=== PATIENT | male | born 1965 | race African-American/Black ===

== ENCOUNTER 2021-11-08 16:50 | Inpatient (IN) | payer BC ==
[~2021-11-08] VITALS: Ht 182.9 cm; Wt 128.4 kg
[~2021-11-08 16:50] MED LIST: FLEXERIL PO; NORCO 5-325 TA1 EACH PO; UNKNOWN BP MED
[2021-11-08 17:06] VITALS: BP 164/77
[2021-11-08] MEDS ORDERED: METFORMIN HCL500 M3 PO (17:08)
[2021-11-08] MEDS ORDERED: NORVASC10 MG PO (17:08)
[2021-11-08] MEDS ORDERED: NEURONTIN100 MG PO (17:09)
[2021-11-08] MEDS ORDERED: TRULICITY3 MG/0.5 M SUBQ (17:09)
[2021-11-08] MEDS ORDERED: HYDROCODON-ACE1 EAC7 PO (17:09)
[2021-11-08 17:31] LABS: ABSOLUTE MONOCYTES 0.3 thou/uL (0.0-1.2); ABSOLUTE NEUTROPHILS 2.6 thou/uL (1.6-8.1); HEMATOCRIT 42.3 % (42.0-52.0); HEMOGLOBIN 14.4 gm/dL (14.0-18.0); LYMPHOCYTES 25.6 %; MCH 27.9 pg (26.0-34.0); MCHC 33.9 g/dL (28.0-37.0); MCV 82.3 fL (80.0-100.0); MONOCYTES 7.3 %; MPV 9.3 fl. (7.2-11.1); NUCLEATED RBCS 0 /100WBC; PLATELET COUNT* 134 thou/uL (150-400); POLYS 66.1 %; RBC 5.14 mil/uL (4.50-6.00); RDW-CV 14.4 % (10.5-14.5)
[2021-11-08 17:41] LABS: INFLUENZA A ANTIGEN Negative (Negative); INFLUENZA B ANTIGEN Negative (Negative)
[2021-11-08 17:44] LABS: CALCIUM 8.1 mg/dL (8.5-10.1); POTASSIUM 3.9 mmol/L (3.5-5.1)
[2021-11-08 17:53] LABS: ALBUMIN 3.2 g/dL (3.4-5.0); TOTAL BILIRUBIN 0.6 mg/dL (<0.1-1.0); TOTAL PROTEIN 7.8 g/dL (6.4-8.2)
[2021-11-08 19:41] VITALS: BP 132/78
[2021-11-08] MEDS ORDERED: COZAAR 25 MG TA25 M1 PO (20:03)
[2021-11-08] MEDS ORDERED: BYSTOLIC10 MG PO (20:03)
[2021-11-09] VITALS: BP 170/97
[2021-11-09 04:00] VITALS: BP 148/77
[2021-11-09 08:00] VITALS: BP 135/85
--- NOTE | 2021-11-09 08:17 | EKG ---
[place] [address] ELECTROCARDIOGRAM REPORT Name: ALEXI MCQUEEN Room: [place] [address] ADM IN [facility]#: [id number] Admission: 11/08/21 Attend Phys: Dileep Cormier Discharge: Date of : 63 Date of Service: 11/08/21 1725 Report #: [id number] THIS REPORT FOR: //name// [facility] ED Test Date: 2021-11-08 Test Time: 17:25:09 Pat Name: ALEXI MCQUEEN Department: Room: [facility] Gender: M Merchandise Presentation Associate: MONIKA : 1965 Requested By: Nabil Rocha Order Number: [id number] MD: Matthew Andersen Measurements Intervals [place] Rate: 94 P: 30 ME: 139 QRS: -32 QRSD: 91 T: 43 QT: 372 QTc: 466 Interpretive Statements Sinus tachycardia Atrial premature complexes Probable left atrial enlargement Left axis deviation No previous ECG available for comparison Electronically Signed On 11-09-2021 8:17:20 ELECTRONIC SCANNER OPERATOR by Matthew Andersen [email or web address] <ELECTRONICALLY SIGNED> By: Matthew Andersen MD, [facility] 11/09/21 0817 1725 1725 Matthew Andersen MD, [facility] /EPI
[2021-11-09 12:00] VITALS: BP 166/94
[2021-11-09 16:00] VITALS: BP 155/84
[2021-11-09 19:29] VITALS: BP 143/72
[2021-11-10] VITALS (9 sets, daily range): BP systolic 135–171; BP diastolic 67–88
[2021-11-10 09:08] LABS: ABSOLUTE LYMPHOCYTES 0.8 thou/uL (0.8-5.3); ABSOLUTE MONOCYTES 0.3 thou/uL (0.0-1.2); BASOPHILS 0.3 %; HEMATOCRIT 40.4 % (42.0-52.0); HEMOGLOBIN 13.4 gm/dL (14.0-18.0); LYMPHOCYTES 16.1 %; MCH 27.5 pg (26.0-34.0); MCHC 33.1 g/dL (28.0-37.0); MCV 83.2 fL (80.0-100.0); MPV 9.5 fl. (7.2-11.1); NUCLEATED RBCS 0 /100WBC; PLATELET COUNT* 179 thou/uL (150-400); POLYS 77.6 %; RBC 4.86 mil/uL (4.50-6.00); RDW-CV 14.1 % (10.5-14.5); WBC 5.2 thou/uL (4.0-11.0)
[2021-11-10 09:19] LABS: APTT 29.9 Seconds (25.0-31.3); INR 1.1; PROTIME 11.7 Seconds (9.20-11.50)
[2021-11-10 09:20] LABS: ALBUMIN 2.7 g/dL (3.4-5.0); CALCIUM 8.2 mg/dL (8.5-10.1); MAGNESIUM 1.9 mg/dL (1.8-2.4); POTASSIUM 3.9 mmol/L (3.5-5.1); TOTAL BILIRUBIN 0.5 mg/dL (<0.1-1.0)
--- NOTE | 2021-11-10 12:52 | 2DMMODE ---
[place] [address] 2 D/M-MODE ECHOCARDIOGRAM Name: ALEXI MCQUEEN Room: [address] IN [facility]#: [id number] Admission: 11/08/21 Attend Phys: Dileep Cormier Discharge: Date of : 63 Date of Service: 11/10/21 1251 Report #: [id number] THIS REPORT FOR: cc: Belén Astudillo MD, Karla L. MD Liston, Michael J. MD [facility] ~ APPROVED REPORT Study performed: 11/10/2021 11:36:04 EXAM: Comprehensive 2D, Doppler, and color-flow Echocardiogram Patient Location: In-Patient Room #: [facility] Status: routine BSA: 2.53 HR: 94 bpm Rhythm: NSR Other Information Study Quality: Good Indications Congestive Heart Failure 2D Dimensions IVSd: 14.53 (7-11mm) LVOT Diam: 22.97 (18-24mm) LVDd: 60.00 mm PWd: 11.62 (7-11mm) Ascending Ao: 40.37 (22-36mm) LVDs: 47.08 (25-40mm) Aortic Root: 31.88 mm Volumes Left Atrial Volume (Systole) LA ESV Index: 28.10 mL/m2 Aortic Valve AoV Peak Zach.: 1.49 m/s AO Peak Gr.: 8.82 mmHg LVOT Max P.06 mmHg AO Mean Gr.: 5.10 mmHg LVOT Mean P.22 mmHg LVOT Max V: 1.01 m/s AO V2 VTI: 24.16 cm LVOT Mean V: 0.70 m/s KM (VTI): 2.66 cm2 LVOT V1 VTI: 15.48 [place] [address] 2 D/M-MODE ECHOCARDIOGRAM Name: ALEXI MCQUEEN Room: [address] IN ..#: [id number] Admission: 11/08/21 Attend Phys: Dileep Cormier Discharge: Date of : 63 Date of Service: 11/10/21 1251 Report #: [id number] Mitral Valve E/A Ratio: 0.78 MV Decel. Time: 204.66 ms MV E Max Zach.: 0.81 m/s MV PHT: 59.35 ms MVA (PHT): 3.71 cm2 TDI E/Lateral E': 7.36 E/Medial E': 9.00 Medial E' Zach.: 0.09 m/s Lateral E' Zach.: 0.11 m/s Pulmonary Valve PV Peak Zach.: 1.07 m/s PV Peak Gr.: 4.60 mmHg Tricuspid Valve RAP Estimate: 5.00 mmHg TR Peak Gr.: 26.60 mmHg RVSP: 31.00 mmHg PA Pressure: 31.00 mmHg Left Ventricle The left ventricle is normal size. There is mild global hypokinesis without obvious focal wall motion abnormality. Mild concentric left ventricular hypertrophy. Left ventricular systolic function is mildly decreased. LVEF is 45-50%. Grade I - abnormal relaxation pattern. Right Ventricle The right ventricle is normal size. The right ventricular systolic function is normal. Atria Left atrium is mildly dilated. The right atrium size is normal. Aortic Valve The aortic valve is normal in structure. No aortic regurgitation is present. There is no aortic valvular stenosis. Mitral Valve The mitral valve is normal in structure. Mild mitral regurgitation. No evidence of mitral valve stenosis. Tricuspid Valve The tricuspid valve is normal in structure. Mild tricuspid regurgitation. The RVSP is 30-[place] [address] 2 D/M-MODE ECHOCARDIOGRAM Name: ALEXI MCQUEEN Room: [address] IN [facility]#: [id number] Admission: 11/08/21 Attend Phys: Dileep Cormier Discharge: Date of : 63 Date of Service: 11/10/21 1251 Report #: [id number] Pulmonic Valve The pulmonary valve is normal in structure. There is no pulmonic valvular regurgitation. Great Vessels The aortic root is normal in size. IVC is not well visualized. Pericardium There is no pericardial effusion. <Conclusion> The left ventricle is normal size. Mild concentric left ventricular hypertrophy. Left ventricular systolic function is mildly decreased. LVEF is 45-50%. Grade I - abnormal relaxation pattern. There is mild global hypokinesis without obvious focal wall motion abnormality. Left atrium is mildly dilated. Mild mitral regurgitation. Mild tricuspid regurgitation. The RVSP is 30-35 mmHg. <ELECTRONICALLY SIGNED> By: Rom Moe MD, FACC 11/10/21 1251 1251 125 Rom Moe MD, FACC /INF
[2021-11-11 04:00] VITALS: BP 132/64
[2021-11-11 08:00] VITALS: BP 142/97
[2021-11-11 13:04] VITALS: BP 147/85
[2021-11-11 16:30] VITALS: BP 145/91
[2021-11-12] VITALS: BP 122/63
[2021-11-12 03:43] LABS: HEMATOCRIT 40.9 % (42.0-52.0); HEMOGLOBIN 13.8 gm/dL (14.0-18.0); MCH 27.7 pg (26.0-34.0); MCHC 33.7 g/dL (28.0-37.0); MCV 82.3 fL (80.0-100.0); MPV 9.7 fl. (7.2-11.1); RBC 4.97 mil/uL (4.50-6.00); RDW-CV 14.1 % (10.5-14.5); WBC 8.5 thou/uL (4.0-11.0)
[2021-11-12 04:00] VITALS: BP 144/83
[2021-11-12 04:00] LABS: BE 1.5 mmol/L (-2 to +3); pH 7.421 (7.340-7.450)
[2021-11-12 04:02] LABS: PO2 59.1 mmHg (75.0-100.0)
[2021-11-12 04:06] LABS: CALCIUM 8.4 mg/dL (8.5-10.1); POTASSIUM 4.1 mmol/L (3.5-5.1)
[2021-11-12 08:00] VITALS: BP 124/66
[2021-11-12 12:00] VITALS: BP 142/85
[2021-11-12 16:00] VITALS: BP 143/87
[2021-11-13] VITALS (7 sets, daily range): BP systolic 111–180; BP diastolic 50–98
[2021-11-13 10:48] LABS: HEMATOCRIT 41.6 % (42.0-52.0); HEMOGLOBIN 14.1 gm/dL (14.0-18.0); MCH 27.5 pg (26.0-34.0); MCHC 33.9 g/dL (28.0-37.0); MPV 9.9 fl. (7.2-11.1); RBC 5.14 mil/uL (4.50-6.00); RDW-CV 14.4 % (10.5-14.5); WBC 11.4 thou/uL (4.0-11.0)
[2021-11-13 10:49] LABS: CALCIUM 8.4 mg/dL (8.5-10.1); CREATININE 0.9 mg/dL (0.6-1.3); POTASSIUM 4.2 mmol/L (3.5-5.1)
[2021-11-13 11:25] LABS: BE 0.1 mmol/L (-2 to +3); PCO2 33.4 mmHg (35.0-45.0)
[2021-11-13 11:28] LABS: PO2 51.1 mmHg (75.0-100.0)
[2021-11-14] VITALS (7 sets, daily range): BP systolic 104–154; BP diastolic 58–89
[2021-11-14 10:52] LABS: HEMATOCRIT 43.1 % (42.0-52.0); HEMOGLOBIN 14.4 gm/dL (14.0-18.0); MCH 27.5 pg (26.0-34.0); MCHC 33.4 g/dL (28.0-37.0); MCV 82.3 fL (80.0-100.0); NUCLEATED RBCS 0 /100WBC; PLATELET COUNT* 285 thou/uL (150-400); RBC 5.23 mil/uL (4.50-6.00); RDW-CV 14.1 % (10.5-14.5); WBC 9.8 thou/uL (4.0-11.0)
[2021-11-14 10:55] LABS: CALCIUM 8.2 mg/dL (8.5-10.1); MAGNESIUM 2.1 mg/dL (1.8-2.4); PHOSPHORUS* 3.3 mg/dL (2.5-4.9); POTASSIUM 4.2 mmol/L (3.5-5.1)
[2021-11-14 11:33] LABS: ABSOLUTE NEUTROPHILS 8.7 thou/uL (1.6-8.1)
[2021-11-14 11:34] LABS: ABSOLUTE LYMPHOCYTES 0.7 thou/uL (0.8-5.3); ABSOLUTE MONOCYTES 0.4 thou/uL (0.0-1.2); PLATELET ESTIMATE ADEQUATE
--- NOTE | 2021-11-14 14:44 | EKG ---
[place] [address] ELECTROCARDIOGRAM REPORT Name: ALEXI MCQUEEN Room: [address] ADM IN ..#: [id number] Admission: 11/08/21 Attend Phys: Dileep Cormier Discharge: Date of : 63 Date of Service: 11/14/21 1401 Report #: [id number] THIS REPORT FOR: //name// [facility] Test Date: 2021-11-14 Test Time: 14:01:33 Pat Name: ALEXI MCQUEEN Department: Room: [address] Gender: M Corporate Traffic Manager: YARIEL : 1965 Requested By: John Hurst Order Number: [id number] Reading MD: Matthew Andersen Measurements Intervals [place] Rate: 140 P: [place]: QRS: -29 QRSD: 97 T: 65 QT: 331 QTc: 505 Interpretive Statements Atrial fibrillation RSR' in V1 or V2, right VCD or RVH Left ventricular hypertrophy Prolonged QT interval Compared to ECG 11/08/2021 17:25:09 Left ventricular hypertrophy now present Prolonged QT interval now present Sinus tachycardia no longer present Electronically Signed On 11-14-2021 14:44:10 AERIAL GUNNER by Matthew Andersen [email or web address] <ELECTRONICALLY SIGNED> By: Matthew Andersen MD, FACC 11/14/21 1444 140 00 Matthew Andersen MD, FACC /EPI
[2021-11-15] VITALS: BP 120/84
[2021-11-15 04:00] VITALS: BP 128/90
[2021-11-15 05:09] LABS: HEMATOCRIT 41.8 % (42.0-52.0); HEMOGLOBIN 13.8 gm/dL (14.0-18.0); MCH 27.1 pg (26.0-34.0); MCV 82.2 fL (80.0-100.0); MPV 9.2 fl. (7.2-11.1); RBC 5.08 mil/uL (4.50-6.00); RDW-CV 14.1 % (10.5-14.5); WBC 11.7 thou/uL (4.0-11.0)
[2021-11-15 05:47] LABS: CALCIUM 8.3 mg/dL (8.5-10.1); POTASSIUM 4.6 mmol/L (3.5-5.1)
[2021-11-15 08:00] VITALS: BP 133/78
[2021-11-15 12:48] VITALS: BP 112/69
[2021-11-15 16:54] VITALS: BP 130/74
[2021-11-15 20:15] VITALS: BP 142/67
[2021-11-16 01:45] VITALS: BP 146/71
[2021-11-16 04:49] LABS: HEMATOCRIT 43.3 % (42.0-52.0); HEMOGLOBIN 14.4 gm/dL (14.0-18.0); MCHC 33.3 g/dL (28.0-37.0); MCV 81.2 fL (80.0-100.0); MPV 9.3 fl. (7.2-11.1); RBC 5.33 mil/uL (4.50-6.00); RDW-CV 14.1 % (10.5-14.5); WBC 14.9 thou/uL (4.0-11.0)
[2021-11-16 05:26] LABS: ALBUMIN 2.2 g/dL (3.4-5.0); CALCIUM 8.1 mg/dL (8.5-10.1); MAGNESIUM 2.2 mg/dL (1.8-2.4); POTASSIUM 4.4 mmol/L (3.5-5.1); TOTAL BILIRUBIN 0.5 mg/dL (<0.1-1.0); TOTAL PROTEIN 6.3 g/dL (6.4-8.2)
[2021-11-16 06:05] VITALS: BP 132/78
[2021-11-16 08:00] VITALS: BP 150/95
--- NOTE | 2021-11-16 10:08 | CON ---
[address] [address] CONSULTATION Name: ALEXI MCQUEEN Room: [address] IN M.R.#: [id number] Admission: 11/08/21 Attend Phys: Lorna Antunez Discharge: Date of : 63 Report #: [id number] THIS REPORT FOR: cc: Belén Astudillo MD, Karla L. MD Blick,Matthew Glaser MD FAC ~ cc: Belén Astudillo MD DATE OF CONSULTATION: 11/14/2021 CARDIOLOGY CONSULTATION HISTORY OF PRESENT ILLNESS: The patient is a 56-year-old black male who I was asked to see in the hospital today after he was noted to be in atrial fibrillation. The patient denies a previous history of heart disease. He presented to the Emergency Room a week ago complaining of weakness and shortness of breath for 2 days. He apparently lives in assisted living, has had some swelling of his feet. The patient was admitted to the hospital and was found to have pneumonia. He apparently was COVID negative. He has been diuresed. Last night, the patient went into atrial fibrillation. He was started on intravenous diltiazem. Cardiology consultation was requested. PAST MEDICAL HISTORY: Significant for previous craniotomy for benign brain tumor in 2000 at [facility]. He has had previous cholecystectomy, shoulder surgery. He has a history of hypertension, diabetes. CURRENT MEDICATIONS: Include metformin, amlodipine, aspirin. FAMILY HISTORY: His mom had heart attack. SOCIAL HISTORY: He is . He works at [employer]. No smoking, alcohol abuse. REVIEW OF SYSTEMS: The patient denies history of snoring. No history of stroke. He is 6 feet tall, weighs 287 pounds. No history of kidney disease, liver disease, cancer, psychiatric, chronic skin condition. PHYSICAL EXAMINATION: GENERAL: Revealed a middle-aged male, appeared in no acute distress. VITAL SIGNS: His blood pressure of 130/80, pulse 120. He is afebrile. HEENT: He was anicteric. Conjunctivae pink. Mucosa moist. NECK: Veins not appear distended. CHEST: Clear to auscultation. HEART: Regular, tachycardia. No significant murmur. ABDOMEN: Obese. EXTREMITIES: [place] [address] CONSULTATION Name: ALEXI MCQUEEN Room: [address] IN [facility]#: [id number] Admission: 11/08/21 Attend Phys: Lorna Antunez Discharge: Date of : 63 Report #: [id number] SKIN: Cool and dry. NEUROLOGIC: Nonfocal. DIAGNOSTIC DATA: His ECG on admission a week ago showed a sinus rhythm, PAC. No significant ST or T-wave change. His electrocardiogram last night showed atrial fibrillation with rapid ventricular response rate. The patient had an echocardiogram last week when he was admitted that showed ejection fraction 50%, left atrial enlargement, mild mitral regurgitation. X-RAYS: The patient had a portable chest x-ray when he was admitted that showed cardiomegaly, pulmonary vascular congestion. Chest x-ray 4 days later showed infiltrate. LABORATORY WORK: Creatinine 1.0, glucose 292. Albumin 2.7. High sensitivity troponin 17. BNP 43. Hemoglobin 14.4. His COVID-19 test was positive. IMPRESSION AND RECOMMENDATIONS: 1. COVID pneumonia. The patient appears to be improving. 2. Diabetes. 3. Hypertension. The patient has been on a calcium karsten. 4. Atrial fibrillation. I would recommend anticoagulation. Add diltiazem to slow the ventricular response rate. Would consider cardioversion. 5. Obesity. 6. Diabetes. <ELECTRONICALLY SIGNED> By: Matthew Andersen MD, FACC 11/16/21 1008 1300 1757Dabridgett Andersen MD, FACC /nt
[2021-11-16 12:07] VITALS: BP 120/67
--- NOTE | 2021-11-16 12:21 | EKG ---
[place] [address] ELECTROCARDIOGRAM REPORT Name: ALEXI MCQUEEN Room: [address] IN [facility]#: [id number] Admission: 11/08/21 Attend Phys: Dileep Cormier Discharge: Date of : 63 Date of Service: 11/13/212048 Report #: [id number] THIS REPORT FOR: //name// [facility] Test Date: 2021-11-13 Test Time: 20:49:25 Pat Name: ALEXI MCQUEEN Department: Room: [address] Gender: M Metalizing Machine Operator: PP : 1965 Requested By: Matthew Andersen Order Number: [id number] Nithin MD: Bunny Tovar Measurements Intervals [place] Rate: 139 P: [place]: QRS: -19 QRSD: 96 T: 57 QT: 333 QTc: 507 Interpretive Statements Pediatric ECG interpretation Atrial fibrillation Nonspecific intraventricular conduction delay Prolonged QT, probably secondary to wide QRS Compared to ECG 11/08/2021 17:25:09 Intraventricular conduction delay now present Prolonged QT interval now present Sinus tachycardia no longer present Atrial premature complex(es) no longer present Left-axis deviation no longer present Electronically Signed On 11-16-2021 12:21:12 MOTORSPORTS TECHNICIAN by Bunny Tovar [email or web address] <ELECTRONICALLY SIGNED> By: Bunny Tovar MD, [facility] 11/16/21 122 48 48 Bunny Tovar MD, [facility] /EPI
--- NOTE | 2021-11-16 12:36 | EKG ---
[place] [address] ELECTROCARDIOGRAM REPORT Name: ALEXI MCQUEEN Room: [address] ADM IN .R.#: [id number] Admission: 11/08/21 Attend Phys: Dileep Cormier Discharge: Date of : 63 Date of Service: 11/16/21 1036 Report #: [id number] THIS REPORT FOR: //name// [facility] Test Date: 2021-11-16 Test Time: 10:36:48 Pat Name: ALEXI MCQUEEN Department: Room: [address] Gender: M Commercial Credit Analyst: YARIEL : 1965 Requested By: Matthew Andersen Order Number: [id number] Nithin MD: Bunny Tovar Measurements Intervals [place] Rate: 121 P: [place]: QRS: -30 QRSD: 103 T: 106 QT: 364 QTc: 517 Interpretive Statements Atrial fibrillation RSR' in V1 or V2, right VCD LVH with secondary repolarization abnormality Prolonged QT interval Baseline wander in lead(s) V3 Compared to ECG 11/14/2021 14:01:33 No significant interval change Electronically Signed On 11-16-2021 12:36:00 MANDATE RETAIL SERVICE MERCHANDISER by Bunny Tovar [email or web address] <ELECTRONICALLY SIGNED> By: Bunny Tovar MD, FACC 11/16/21 1236 1036 1036 Bunny Tovar MD, FACC /EPI
[2021-11-16 16:34] VITALS: BP 107/53
[2021-11-16 19:45] VITALS: BP 109/66
[2021-11-17] VITALS (9 sets, daily range): BP systolic 105–130; BP diastolic 65–74
[2021-11-17 05:55] LABS: HEMATOCRIT 45.4 % (42.0-52.0); HEMOGLOBIN 15.2 gm/dL (14.0-18.0); MCH 27.6 pg (26.0-34.0); MCHC 33.4 g/dL (28.0-37.0); MCV 82.6 fL (80.0-100.0); RBC 5.5 mil/uL (4.50-6.00); RDW-CV 14.1 % (10.5-14.5); WBC 18.2 thou/uL (4.0-11.0)
[2021-11-17 06:32] LABS: ALBUMIN 2.3 g/dL (3.4-5.0); CALCIUM 8.4 mg/dL (8.5-10.1); CREATININE 1.2 mg/dL (0.6-1.3); MAGNESIUM 2.2 mg/dL (1.8-2.4); TOTAL BILIRUBIN 0.4 mg/dL (<0.1-1.0); TOTAL PROTEIN 6.5 g/dL (6.4-8.2)
[2021-11-17] MEDS ORDERED: XARELTO20 MG PO (16:55)
[2021-11-17] MEDS ORDERED: LANOXIN 0.25M0.25 M1 PO (16:55)
[2021-11-17] MEDS ORDERED: CARDIZEM CD120 MG PO (16:55)
[2021-11-17] MEDS ORDERED: SORINE 80 MG TA80 M1 PO (16:55)
[2021-11-17] MEDS ORDERED: DEXAMETHASONE1 MG PO (17:04)
[2021-11-17] MEDS ORDERED: DOXYCYCLINE 10100 MG PO (17:04)
[2021-11-17] MEDS ORDERED: PROTONIX40 M4 PO (17:04)
[2021-11-17] MEDS ORDERED: HUMALOG100 UNIT/1 SUBQ (17:10)
[2021-11-18 01:43] VITALS: BP 118/78
[2021-11-18 05:02] LABS: ABSOLUTE MONOCYTES 0.6 thou/uL (0.0-1.2); ABSOLUTE NEUTROPHILS 14.9 thou/uL (1.6-8.1); BASOPHILS 0.3 %; EOSINOPHILS 0.1 %; HEMATOCRIT 49.7 % (42.0-52.0); HEMOGLOBIN 16.4 gm/dL (14.0-18.0); LYMPHOCYTES 5.8 %; MCH 27.7 pg (26.0-34.0); MCHC 33.1 g/dL (28.0-37.0); MCV 83.6 fL (80.0-100.0); MONOCYTES 3.8 %; MPV 9.4 fl. (7.2-11.1); NUCLEATED RBCS 0 /100WBC; PLATELET COUNT* 335 thou/uL (150-400); RBC 5.94 mil/uL (4.50-6.00); WBC 16.6 thou/uL (4.0-11.0)
[2021-11-18 05:30] VITALS: BP 108/83
[2021-11-18 05:35] LABS: ALBUMIN 2.4 g/dL (3.4-5.0); CALCIUM 8.1 mg/dL (8.5-10.1); MAGNESIUM 2.2 mg/dL (1.8-2.4); POTASSIUM 4.1 mmol/L (3.5-5.1); TOTAL BILIRUBIN 0.5 mg/dL (<0.1-1.0); TOTAL PROTEIN 6.5 g/dL (6.4-8.2)
[2021-11-18 08:55] VITALS: BP 118/78
[2021-11-18] MEDS ORDERED: DILTIAZEM HCL90 MG PO (09:15)
[2021-11-18] MEDS ORDERED: SORINE 80 MG TA80 M1 PO (09:15)
--- NOTE | 2021-11-18 10:53 | EKG ---
[place] [address] ELECTROCARDIOGRAM REPORT Name: ALEXI MCQUEEN Room: [address] ADM IN .R.#: [id number] Admission: 11/08/21 Attend Phys: Dileep Cormier Discharge: Date of : 63 Date of Service: 11/17/21 1219 Report #: [id number] THIS REPORT FOR: //name// [facility] Test Date: 2021-11-17 Test Time: 12:19:08 Pat Name: ALEXI MCQUEEN Department: Room: [address] Gender: M Career Services Representative: YARIEL : 1965 Requested By: Christie Mc Order Number: [id number] Reading MD: Bunny Tovar Measurements Intervals [place] Rate: 133 P: [place]: QRS: -28 QRSD: 104 T: 132 QT: 367 QTc: 546 Interpretive Statements Atrial fibrillation with occasional aberrant conduction Abnormal R-wave progression, early transition Left ventricular hypertrophy Nonspecific ST-T abnormalities Prolonged QT interval Compared to ECG 11/16/2021 10:36:48 Occasional aberrantly conducted beats are noted Nonspecific ST-T changes persist Electronically Signed On 11-18-2021 10:53:02 FRUIT BAR MAKER by Bunny Tovar [email or web address] <ELECTRONICALLY SIGNED> By: Bunny Tovar MD, FACC 11/18/21 1053 Bunny Tovar MD, FAC /EPI
--- NOTE | 2021-11-18 10:56 | EKG ---
[place] [address] ELECTROCARDIOGRAM REPORT Name: ALEXI MCQUEEN Room: [address] ADM IN .R.#: [id number] Admission: 11/08/21 Attend Phys: Dileep Cormier Discharge: Date of : 63 Date of Service: 11/18/21 0653 Report #: [id number] THIS REPORT FOR: //name// [facility] Test Date: 2021-11-18 Test Time: 06:53:30 Pat Name: ALEXI MCQUEEN Department: Room: [address] Gender: M Scout Leaser: : 1965 Requested By: Matthew Andersen Order Number: [id number] Reading MD: Bunny Tovar Measurements Intervals [place] Rate: 94 P: [place]: QRS: -27 QRSD: 102 T: 134 QT: 350 QTc: 438 Interpretive Statements Atrial fibrillation Abnormal R-wave progression, late transition LVH with secondary repolarization abnormality Baseline wander in lead(s) V1 Compared to ECG 11/17/2021 12:19:08 Aberrantly conducted beats are no longer noted T-wave abnormality no longer present Possible ischemia no longer present Prolonged QT interval no longer present Electronically Signed On 11-18-2021 10:56:23 LITHOGRAPHIC PLATEMAKER by Bunny Tovar [email or web address] <ELECTRONICALLY SIGNED> By: Bunny Tovar MD, [facility] 11/18/21 1056 0653 Bunny Tovar MD, [facility] /EPI
[2021-11-18 11:53] VITALS: BP 128/74
[2021-11-18 13:03] VITALS: BP 111/80
--- NOTE | 2021-11-19 11:15 | EKG ---
[place] [address] ELECTROCARDIOGRAM REPORT Name: ALEXI MCQUEEN Room: [address] IN ..#: [id number] Admission: 11/08/21 Attend Phys: Dileep Cormier Discharge: 11/18/21 Date of : 63 Date of Service: 11/18/21 1058 Report #: [id number] THIS REPORT FOR: //name// [facility] Test Date: 2021-11-18 Test Time: 10:58:46 Pat Name: ALEXI MCQUEEN Department: Room: [address] Gender: M Geographic Information System Surveyor: YARIEL : 1965 Requested By: Dileep Cormier Order Number: [id number] Nithin MD: Bunny Tovar Measurements Intervals [place] Rate: 93 P: [place]: QRS: -30 QRSD: 101 T: 140 QT: 352 QTc: 438 Interpretive Statements Atrial fibrillation LVH with secondary repolarization abnormality 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
== END 2021-11-18 15:45 | disposition home or self-care (01) | DRG 177 ==
LOC: M.ERS 16:50 → M.ORTHSURG 18:18 → M.TBA-ER 18:18 → M.ORTHSURG 11-10 03:02
PROVIDERS: Emergency Medicine Emergency Medical Services; Internal Medicine; Internal Medicine Critical Care Medicine; Physician Assistant; ADMIT Internal Medicine; ATTEND Internal Medicine
PROC: XW13325 Transfusion of Convalescent Plasma (Nonautologous) into Peripheral Vein, Percutaneous Approach, New Technology Group 5 (ICD-10-PCS; principal; 2021-11-10)
PROC: 5A0935A Assistance with Respiratory Ventilation, Less than 24 Consecutive Hours, High Flow/Velocity Cannula (ICD-10-PCS; 2021-11-12)
PROC: 5A0935A Assistance with Respiratory Ventilation, Less than 24 Consecutive Hours, High Flow/Velocity Cannula (ICD-10-PCS; 2021-11-14)
PROC: 5A0935A Assistance with Respiratory Ventilation, Less than 24 Consecutive Hours, High Flow/Velocity Cannula (ICD-10-PCS; 2021-11-16)
DX: U07.1 COVID-19 (principal); J12.82 Pneumonia due to coronavirus disease 2019; J96.01 Acute respiratory failure with hypoxia; I48.0 Paroxysmal atrial fibrillation; I25.5 Ischemic cardiomyopathy; I25.2 Old myocardial infarction; I12.9 Hypertensive chronic kidney disease with stage 1 through stage 4 chronic kidney disease, or unspecified chronic kidney disease; N18.2 Chronic kidney disease, stage 2 (mild); Z79.4 Long term (current) use of insulin; E11.65 Type 2 diabetes mellitus with hyperglycemia